=== PATIENT | female | born 1960 | race Caucasian/White ===

== ENCOUNTER 2022-03-12 08:20 | Outpatient (CLI) | payer OTHER | END 2022-03-12 08:22 | disposition home or self-care (01) | LOC: SONOGRAMA 08:20 | PROVIDERS: ATTEND Pathology Anatomic Pathology & Clinical Pathology | DX: E04.2 Nontoxic multinodular goiter (principal) ==

== ENCOUNTER 2022-05-01 06:00 | Day surgery (SDC) | payer OTHER ==
[~2022-05-01] VITALS: Ht 162.6 cm; Wt 73.9 kg
[~2022-05-01 06:00] MED LIST: HORIZANT300 MG PO; HUMULIN N100 UNIT/2; LOSARTAN-HCTZ1 EAC1 PO; METFORMIN HCL500 M3 PO
[2022-05-01] MEDS ORDERED: ULTRACET PO (09:03)
== END 2022-05-01 10:35 | disposition home or self-care (01) ==
LOC: CIR.AMB 06:00
PROVIDERS: ATTEND Surgery
DX: C50.919 Malignant neoplasm of unspecified site of unspecified female breast (principal); Z20.822 Contact with and (suspected) exposure to COVID-19; I10 Essential (primary) hypertension; M79.7 Fibromyalgia; K21.9 Gastro-esophageal reflux disease without esophagitis; E11.9 Type 2 diabetes mellitus without complications; Z79.4 Long term (current) use of insulin